=== PATIENT | male | born 1990 | race Two or more races ===

== ENCOUNTER 2017-09-25 17:22 | Emergency (ER) | payer BC, OTHER ==
[~2017-09-25] VITALS: Ht 172.7 cm; Wt 69.1 kg
[2017-09-25 17:34] VITALS: BP 117/77
[2017-09-25] MEDS ORDERED: ACETAMINOPHEN 325 MG TABLET PO ONE (18:00)
== END 2017-09-25 20:49 | disposition home or self-care (01) ==
LOC: ED 20:43
DX: S62.653A Nondisplaced fracture of middle phalanx of left middle finger, initial encounter for closed fracture (principal); S52.572A Other intraarticular fracture of lower end of left radius, initial encounter for closed fracture; V19.49XA Pedal cycle driver injured in collision with other motor vehicles in traffic accident, initial encounter; Y93.55 Activity, bike riding; Y92.89 Other specified places as the place of occurrence of the external cause; Y99.8 Other external cause status
CPT/HCPCS: 12041; 99284